=== PATIENT | male | born 1990 | race Caucasian/White ===

== ENCOUNTER 2021-11-26 12:26 | Emergency (ER) | payer OTHER ==
[~2021-11-26] VITALS: Ht 165.1 cm; Wt 10.0 kg
[2021-11-26] MEDS ORDERED: PREPARATION H1 EAC3 TP (12:37)
== END 2021-11-26 14:25 | disposition home or self-care (01) ==
LOC: ER 12:26
DX: K60.2 Anal fissure, unspecified (principal); K62.5 Hemorrhage of anus and rectum